=== PATIENT | female | born 1960 | race Caucasian/White ===

== ENCOUNTER 2021-12-23 10:35 | Outpatient (CLI) | payer OTHER ==
[2021-12-23 12:05] LABS: Hemoglobin 12.9 g/dL (12.0-15.5); Mean Corpuscular HGB CONC 32.3 g/dL (32.0-36.0); Mean Corpuscular Hemoglobin 28.7 pg (27.0-33.0); Mean Corpuscular Volume 88.7 fl (81.6-98.3); Mean Platelet Volume 11.1 fl (7.4-10.4); Platelet Count 352 10x3/uL (150-450); RBC Distribution Width 12.8 % (11.5-14.5); White Blood Cell (WBC) Count 7.8 10x3/uL (3.5-10.5)
[2021-12-23 12:18] LABS: Anion Gap 15 mmol/L (10-20); BUN (Urea Nitrogen) 16 mg/dL (9.8-20.1); Calc. Creatinine Clearance 0 mL/min (70-130); Calcium 9.7 mg/dL (7.8-10.44); Carbon Dioxide 24 mmol/L (23-31); Chloride 105 mmol/L (98-107); Glucose 93 mg/dL (80-115); Potassium 4.8 mmol/L (3.5-5.1); Sodium 139 mmol/L (136-145)
[2021-12-23 12:19] LABS: INR-International Normal Ratio 0.9; Prothrombin Time 10.1 sec (9.5-12.1)
[2021-12-23 21:49] LABS: SARS-CoV-2 PCR by NAA Not Detected (NotDetected)
== END 2021-12-23 10:36 | disposition home or self-care (01) ==
LOC: LABBT 10:35
PROVIDERS: ATTEND Internal Medicine Cardiovascular Disease
DX: Z01.812 Encounter for preprocedural laboratory examination (principal); I48.4 Atypical atrial flutter; I48.0 Paroxysmal atrial fibrillation; Z20.822 Contact with and (suspected) exposure to COVID-19
CPT/HCPCS: 80048; 85027; 85610; U0003; U0005

== ENCOUNTER 2021-12-26 08:53 | Day surgery (SDC) | payer OTHER ==
[2021-12-24 11:59] VITALS: BMI 33.3
[2021-12-26] MEDS ORDERED: Heparin 25,000 units/D5W 500 ML ONE (10:56)
[2021-12-26] MEDS ORDERED: Heparin 10,000 UNITS/ 10 ML VIAL ONE (10:56)
[2021-12-26] MEDS ORDERED: Rocuronium Bromide 10 MG/ML (10ML VIAL) ONE (11:58)
[2021-12-26] MEDS ORDERED: PROPOFOL 200 MG/20 ML VIAL ONE (11:58)
[2021-12-26] MEDS ORDERED: Ondansetron PF 4 MG/2 ML Vial ONE (11:58)
[2021-12-26] MEDS ORDERED: Dexamethasone 20 MG/5 ML VIAL ONE (11:58)
[2021-12-26] MEDS ORDERED: Lidocaine 1% PF 5 ML VIAL ONE (11:58)
[2021-12-26] MEDS ORDERED: PHENYLEPHRINE-NS 100 MCG/ML 10 ML SYRINGE ONE (11:58)
[2021-12-26] MEDS ORDERED: GLYCOPYRROLATE/PF 0.2 MG/ML VIAL ONE (11:58)
[2021-12-26] MEDS ORDERED: Succinylcholine 200 MG/10 ml SYRINGE FS ONE (11:58)
[2021-12-26] MEDS ORDERED: Phenylephrine 10 MG/ML VIAL ONE (13:16)
[2021-12-26] MEDS ORDERED: Protamine Sulfate 50 MG/5 ML VIAL ONE (14:45)
== END 2021-12-26 19:22 | disposition home or self-care (01) ==
LOC: SDC 08:53
PROVIDERS: ATTEND Internal Medicine Cardiovascular Disease
PROC: 5A2204Z Restoration of Cardiac Rhythm, Single (ICD-10-PCS; principal; 2021-12-26)
PROC: 02K83ZZ Map Conduction Mechanism, Percutaneous Approach (ICD-10-PCS; principal; 2021-12-26)
PROC: 02583ZZ Destruction of Conduction Mechanism, Percutaneous Approach (ICD-10-PCS; principal; 2021-12-26)
PROC: B246ZZ4 Ultrasonography of Right and Left Heart, Transesophageal (ICD-10-PCS; principal; 2021-12-26)
DX: I48.4 Atypical atrial flutter (principal); I48.0 Paroxysmal atrial fibrillation; I51.7 Cardiomegaly; I34.0 Nonrheumatic mitral (valve) insufficiency; E78.5 Hyperlipidemia, unspecified; G40.909 Epilepsy, unspecified, not intractable, without status epilepticus; Z79.01 Long term (current) use of anticoagulants; Z79.899 Other long term (current) drug therapy
CPT/HCPCS: 85347; 93005; 93312; 93613; 93656; 93657; 93662; C1732; C1759; C1776; C1894; C2630; J1100; J1644; J2370; J2405; J2704; J2720; J3490

== ENCOUNTER 2024-08-12 06:16 | Day surgery (SDC) | payer MEDICARE, BC ==
[2024-08-11 13:54] VITALS: BMI 33.3
[2024-08-12] MEDS ORDERED: Lidocaine 1% PF 5 ML VIAL ONE (07:19)
[2024-08-12] MEDS ORDERED: PROPOFOL 200 MG/20 ML VIAL ONE (07:19)
[2024-08-12 07:22] LABS: #Basophils 0.03 10x3/uL (0.0-0.2); %Basophils 0.5 % (0.0-1.0); %Eosinophils 1.5 % (0.0-10.0); %Neutrophils 47.8 % (42.0-75.0); Hematocrit 38.2 % (36.0-47.0); Hemoglobin 12.5 g/dL (12.0-16.0); Mean Corpuscular HGB CONC 32.7 g/dL (32.0-36.0); Mean Corpuscular Hemoglobin 28.7 pg (27.0-31.0); Mean Corpuscular Volume 87.6 fL (78.0-98.0); Mean Platelet Volume 10.7 fL (7.4-10.4); Platelet Count 293 10x3/uL (130-400); RBC Distribution Width 12.8 % (11.5-14.5); Red Blood Cell (RBC) Count 4.36 mill/uL (4.20-5.40)
[2024-08-12 07:29] LABS: Anion Gap 11 mmol/L (10-20); BUN (Urea Nitrogen) 14 mg/dL (9.8-20.1); Calc. Creatinine Clearance 96 mL/min (70-130); Calcium 9.3 mg/dL (7.8-10.44); Carbon Dioxide 25 mmol/L (23-31); Chloride 109 mmol/L (98-107); Estimated GFR 88; Glucose 101 mg/dL (80-115); Potassium 3.9 mmol/L (3.5-5.1); Sodium 141 mmol/L (136-145)
[2024-08-12 07:38] LABS: INR-International Normal Ratio 1.3; Prothrombin Time 16.4 sec (12.0-14.7)
== END 2024-08-12 08:15 | disposition home or self-care (01) ==
LOC: SDC 06:16
PROVIDERS: ATTEND Internal Medicine Cardiovascular Disease
PROC: 5A2204Z Restoration of Cardiac Rhythm, Single (ICD-10-PCS; principal; 2024-08-12)
DX: I48.4 Atypical atrial flutter (principal); I48.0 Paroxysmal atrial fibrillation; E78.5 Hyperlipidemia, unspecified; G40.909 Epilepsy, unspecified, not intractable, without status epilepticus; H90.42 Sensorineural hearing loss, unilateral, left ear, with unrestricted hearing on the contralateral side; Z90.89 Acquired absence of other organs; Z98.51 Tubal ligation status; Z98.890 Other specified postprocedural states; Z79.01 Long term (current) use of anticoagulants; Z79.899 Other long term (current) drug therapy
CPT/HCPCS: 80048; 85025; 85610; 92960; 93005; 93010; J2704